=== PATIENT | female | born 1960 | race Caucasian/White ===

== ENCOUNTER → 2025-02-13 14:00 | Outpatient (REF) | payer BC, SELFPAY | LOC: HWEVLT 14:00 | PROVIDERS: ATTENDING PHYSICIAN Radiology Vascular & Interventional Radiology | DX: I83.891 Varicose veins of right lower extremity with other complications (principal) | CPT/HCPCS: 93971 ==

== ENCOUNTER → 2025-03-12 17:55 | Outpatient (REF) | payer BC, SELFPAY | LOC: PAVMRI 17:55 | PROVIDERS: ATTENDING PHYSICIAN Podiatrist Foot & Ankle Surgery; FAMILY PHYSICIAN Internal Medicine | DX: M72.2 Plantar fascial fibromatosis (principal) | CPT/HCPCS: 73718 ==